=== PATIENT | female | born 1950 | race Caucasian/White ===

== ENCOUNTER 2016-11-07 05:50 | Inpatient (IN) | payer OTHER, BC ==
[2016-10-20 13:43] VITALS: BMI 37.1
[2016-11-07] MEDS ORDERED: BUPIVACAINE HCL/PF 0.5% (5MG/ML) 10 ML VIAL ONE ×2 (06:55→07:33)
[2016-11-07] MEDS ORDERED: SODIUM CHLORIDE 0.9% P/F 10 ML VIAL IJ ONE (06:55)
[2016-11-07] MEDS ORDERED: MIDAZOLAM HCL 2 MG/2 ML SINGLE DOSE VIAL ONE (06:56)
[2016-11-07] MEDS ORDERED: VANCOMYCIN 1,000 MG VIAL (RESTRICTED TO ID ONLY) ONE (07:13)
[2016-11-07] MEDS ORDERED: ceFAZolin SODIUM 1 GM VIAL ONE ×2 (07:13→08:39)
[2016-11-07] MEDS ORDERED: ROPIVICAINE 0.2%/MORPH PF/KETOROLAC - 51ML DISP.SYRINGE IA ONE ×2 (07:13→07:24)
[2016-11-07] MEDS ORDERED: TRANEXAMIC ACID 1000 MG/10 ML VIAL ONE ×2 (07:13→08:39)
[2016-11-07] MEDS ORDERED: oxyCODONE HCL 10 MG SUSTAINED ACTING TABLET ONE (07:21)
[2016-11-07] MEDS ORDERED: CELECOXIB 200 MG CAPSULE ONE (07:22)
[2016-11-07] MEDS ORDERED: GABAPENTIN 300 MG CAPSULE (FP) ONE (07:22)
[2016-11-07] MEDS ORDERED: CEFAZOLIN 2 GM in DEXTROSE 5%-WATER - 50 ML IVPB ONE (07:24)
[2016-11-07] MEDS ORDERED: TRANEXAMIC ACID 1000 MG/10 ML VIAL IVPUSH ONE (07:24)
[2016-11-07] MEDS: CELECOXIB 200 MG CAPSULE PO ONE (07:25)
[2016-11-07] MEDS: oxyCODONE HCL 10 MG SUSTAINED ACTING TABLET PO ONE (07:25)
[2016-11-07] MEDS: GABAPENTIN 300 MG CAPSULE (FP) PO ONE (07:25)
[2016-11-07] MEDS ORDERED: PROPOFOL 20 ML ONE ×4 (07:38→10:10)
--- NOTE | 2016-11-07 07:38 | HP ---
Admitting History and Physical - Admission Chief Complaint: Left knee osteoarthritis x years History of Present Illness: 66 year old female presents in regard to her left knee. Longstanding history of left knee osteoarthritis. Patient complains of pain, limited ROM, difficulty ambulating and difficulty with ADLs. She has failed conservative treatment including PO medication, activity modification, injections and exercise program. At this point, patient would like to proceed with a left total knee arthroplasty. History Source: Patient - Past Medical History Gastrointestinal: Yes: GI Bleed, Peptic Ulcer Disease ...: No - Past Surgical History Additional Past Surgical History: See written H&P - Smoking History Smoking history: Never smoked Have you smoked in the past 12 months: No - Alcohol/Substance Use Hx Alcohol Use: Yes (OCCASIONALLY) Home Medications - Allergies Allergies/Adverse Reactions: Allergies Allergy/AdvReac Type Severity Reaction Status Date / Time No Known Allergies Allergy Verified 10/20/16 13:43 - Home Medications Home Medications: Ambulatory Orders Tramadol HCl [Ultram -] 50 mg PO Q4H PRN #90 tablet MDD 6 01/27/16 Review of Systems - Review of Systems Musculoskeletal: reports: Crepitus (Left Knee), Decreased ROM (Left Knee), Joint Pain (Left Knee), Joint Swelling (Left Knee) Physical Examination Vital Signs: Vital Signs Temperature 98.0 F 11/07/16 06:09 Pulse Rate 59 L 11/07/16 06:09 Respiratory Rate 18 11/07/16 06:09 Blood Pressure 136/84 11/07/16 06:09 O2 Sat by Pulse Oximetry (%) Constitutional: Yes: Well Nourished, No Distress Eyes: Yes: Conjunctiva Clear HENT: Yes: Atraumatic, Normocephalic Neck: Yes: Supple Cardiovascular: Yes: Regular Rate and Rhythm Respiratory: Yes: Regular Gastrointestinal: Yes: Soft ...Rectal Exam: Yes: Deferred Musculoskeletal: Yes: Joint Stiffness (Left Knee), Joint Swelling (Left Knee) Assessment/Plan 66 year old female with longstanding history of left knee osteoarthritis. Patient admits to limitations in ADLs and ambulation. Patient has failed all conservative treatment. Proceed with a left total knee arthroplasty.
[2016-11-07] MEDS ORDERED: ONDANSETRON 4 MG/2 ML VIAL ONE (08:39)
[2016-11-07] MEDS ORDERED: DEXAMETHASONE SOD PHOSPHATE 4 MG/1 ML VIAL ONE (08:39)
[2016-11-07] MEDS ORDERED: hydrALAZINE HCL 20 MG/ML VIAL ONE (09:13)
[2016-11-07] MEDS ORDERED: LABETALOL HCL 5 MG/1 ML (100MG/20 ML VIAL) ONE (09:13)
[2016-11-07] MEDS ORDERED: ONDANSETRON 4 MG/2 ML VIAL IVPUSH PRN (10:36)
[2016-11-07] MEDS ORDERED: oxyCODONE HCL 5 MG TABLET PO PRN ×2 (10:37)
--- NOTE | 2016-11-07 11:30 | OP ---
Operative Note - Note: Operative Date: 11/07/16 Pre-Operative Diagnosis: left knee OA Operation: left TKA Post-Operative Diagnosis: Same as Pre-op Surgeon: Hamilton Chang Exerciser Horse: Jennifer Dominguez Anesthesia: Spinal Estimated Blood Loss (mls): 50
[2016-11-07] MEDS ORDERED: MAGNESIUM HYDROX 2400MG/30ML ORAL SUSPENSION 30 ML CUP PO PRN (11:33)
[2016-11-07] MEDS ORDERED: MAG HYDROX/AL HYDROX/SIMETH 30 ML UNIT-DOSE CUP PO PRN (11:33)
[2016-11-07] MEDS ORDERED: PANTOPRAZOLE 40 MG TABLET (FP) PO ONE (11:36)
[2016-11-07] MEDS ORDERED: LACTATED RINGERS SOLUTION 1,000 ML IV SCH (11:45)
[2016-11-07] MEDS: KETOROLAC TROMETHAMINE 30 MG/1 ML VIAL IVPUSH SCH ×2 (12:00→23:40)
[2016-11-07] MEDS: traMADol HCL 50 MG TABLET PO SCH ×2 (12:15→23:35)
[2016-11-07] MEDS: ACETAMINOPHEN 325 MG TABLET (FP) PO SCH (12:15)
[2016-11-07] MEDS: SENNOSIDES/DOCUSATE COMBO (SENNA PLUS) TABLET (UD) PO SCH (21:40)
[2016-11-07] MEDS: oxyCODONE HCL 10 MG SUSTAINED ACTING TABLET PO SCH (21:40)
[2016-11-07] MEDS: CELECOXIB 200 MG CAPSULE PO SCH (21:41)
[2016-11-07] MEDS: GABAPENTIN 300 MG CAPSULE (FP) PO SCH ×2 (21:41→21:42)
[2016-11-07] MEDS: ASCORBIC ACID 500 MG TABLET (FP) PO SCH (21:42)
[2016-11-08] MEDS: KETOROLAC TROMETHAMINE 30 MG/1 ML VIAL IVPUSH SCH ×2 (00:40→06:09)
[2016-11-08] MEDS: CEFAZOLIN 2 GM/D5W 50 ML IVPB SCH (01:15)
[2016-11-08] MEDS: ACETAMINOPHEN 325 MG TABLET (FP) PO SCH ×4 (01:17→17:07)
[2016-11-08] MEDS: ONDANSETRON 4 MG/2 ML VIAL IVPB PRN ×2 (06:07→12:09)
[2016-11-08] MEDS: traMADol HCL 50 MG TABLET PO SCH ×3 (06:08→18:45)
[2016-11-08 08:04] LABS: ANION GAP 6 (8-16); CALCIUM 8.6 mg/dl (8.4-10.2); CO2 29 mmol/L (22-28); CREATININE 0.8 mg/dl (0.6-1.3); GLUCOSE,RANDOM 116 mg/dl (74-106); MCH 29.2 pg (25.7-33.7); MCHC 34.1 g/dl (32.0-36.0); MEAN CELL VOLUME 85.7 fl (80-96); MEAN PLT VOLUME 9.3 fl (7.5-11.1); PLATELET COUNT 201 K/MM3 (134-434); RDW 12.5 % (11.6-15.6); WHITE BLOOD COUNT 10.2 K/mm3 (4.0-10.8)
[2016-11-08] MEDS: ASPIRIN 325 MG TABLET PO SCH (08:12)
--- NOTE | 2016-11-08 08:12 | SPEC ---
DATE OF OPERATION: 11/07/2016 PREOPERATIVE DIAGNOSIS: Left knee osteoarthritis. POSTOPERATIVE DIAGNOSIS: Left knee osteoarthritis. PROCEDURE: Left total knee replacement. ATTENDING: Demarco Clark MD ODD TICKET CLERK: CADEN Nogueira ANESTHESIA: Spinal plus sedation. ESTIMATED BLOOD LOSS: 50 mL. COMPLICATIONS: None. SPECIMENS: Resected bone was sent for pathology analysis. DISPOSITION: The patient was transferred to the PACU in stable condition. IMPLANTS USED: [employer] Tri[employer]lon size 4 femoral and tibial components, 35-mm patellar component, 11-mm posterior stabilized polyethylene component. INDICATIONS: This is a 66-year-old female who presented to the office complaining of left knee pain. She has a history of a previous total hip replacement and did well after that surgery. She was diagnosed with severe left knee osteoarthritis and initially was treated nonoperatively with injections, medications, and physical therapy. She continued to have severe left knee pain and ambulatory dysfunction, and therefore was indicated for a left total knee replacement. The risks, benefits, and alternatives to the surgery were explained to the patient in great detail, and she elected to proceed with the surgery. DESCRIPTION OF PROCEDURE: On the day of surgery, the patient was taken to the operating room and placed on the OR table. Spinal anesthesia was administered by the anesthesiologist. The patient was then positioned supine on the table and all bony prominences were padded. A nonsterile tourniquet was placed on the proximal thigh. The knee was then prepped and draped in the usual sterile fashion and intravenous antibiotics were given for infection prophylaxis. A surgical time-out was then performed with the team, and the patients identity, procedure, side, availability of implants, and the administration of antibiotics was confirmed. The leg was then elevated and exsanguinated, and the tourniquet was inflated. With the knee flexed, a midline incision was made and carried down through the subcutaneous fat to the underlying retinaculum. A medial parapatellar arthrotomy was performed. This was followed by a subperiosteal dissection of the tissue off the proximal, medial tibia. A portion of fat pad was removed from under the patellar tendon, and a small portion of fat was excised off the distal supracondylar femur. The knee was then flexed further and the anterior horn of the lateral meniscus was released from the midline. Next, the anterior and posterior cruciate ligaments were transected. Osteophytes were removed from both the femur and tibia. Grade 4 changes were noted diffusely throughout the knee. Hohmann retractors were then placed around the distal femur. The starting drill was used to enter the intramedullary canal. The starting point had been chosen by checking the radiographs and anatomy. Proper alignment and intramedullary placement was then confirmed by placing the long narrow rachna into the femur. Next, the distal femoral cutting guide was adjusted to 6 degrees of valgus and pinned to the femur. The bone resection was assessed using an olaf-wing. An approximately 10mm distal cut was made and the cut pieces measured. Once this was complete, the sizing guide was used to determine which size femoral component should be used. Next, the appropriately sized 4-in-1 cutting block was then placed at the correct amount of external rotation and the olaf wing was used to assure that there would be no notching of the anterior cortex of the femur. Once this was done, Hohmann retractors were used to protect the medial and lateral collateral ligaments, and all appropriate bone cuts were made. Attention was then turned to the tibia. Hohmann retractors were used to translate the tibia anteriorly and protect the collateral ligaments. The medial and lateral menisci were removed. The extramedullary tibial alignment guide was then placed and adjusted for rotation, varus/valgus, and slope. The height of the cutting block was adjusted to the level of the desired bone resection and then pinned in place. The proximal tibia was then cut with a saw and the bone was removed and measured. Once this was completed, trial components were placed and the knee was taken through a full range of motion. Soft tissue balance was assessed in both flexion and extension and found to be appropriate. The knee was stable throughout the full range of motion. The knee was then put into extension and the patella everted. The synovium around the patella was circumscribed with electrocautery. A caliper was used to measure the patellar thickness and a saw was then used to resect the patella at the chondro-osseous junction. The cut surface was then sized and drilled for the appropriate patellar button, with care taken to medialize it. A trial patella was then placed and the knee was again taken through a full range of motion. The knee was found to have both good balance and good patellar tracking. All of the components were removed except the tibial base plate. The appropriate instrumentation was used to drill and punch the proximal tibia for the keel of the final component. All bony surfaces were then cleaned with pulsatile lavage and dried. Bone cement was then prepared on the back table, and final components were cemented in place in the usual fashion. Extruded cement was removed. The polyethylene trial was placed, the knee was put into extension, and axial pressure was applied for compression while the cement hardened. The patellar button was similarly cemented into place. Once the cement had hardened, the knee was taken through a full range of motion to assess stability, balance, and patellar tracking. This was found to be optimal and the trial polyethylene was exchanged for the appropriately sized real implant. The wound was then thoroughly irrigated with normal saline. No. 1 Polysorb and 0 VLoc 180 barbed sutures were used to close the arthrotomy. No. 1 Polysorb and 2-0 Polysorb sutures were used in the subcutaneous tissues. The skin was closed using both 3-0 VLoc 90 suture in a running subcuticular fashion and SwiftSet skin adhesive. Once this was completed a sterile Aquacel dressing and compressive Drew-wrap was applied. The tourniquet was then deflated and the patient was awakened and taken to the PACU in stable condition. ADDENDUM: After final components were placed, a 3-minute dilute betadine lavage was performed according to the [facility] protocol. This was followed by copious irrigation with normal saline via pulsatile lavage. After this, wound closure was begun. DEMARCO CLARK M.D. [id number]
[2016-11-08] MEDS: MULTIVITAMINS (DAILY MVI) TABLET (FP) PO SCH (09:54)
[2016-11-08] MEDS: ASCORBIC ACID 500 MG TABLET (FP) PO SCH ×2 (09:55→21:53)
[2016-11-08] MEDS: PANTOPRAZOLE 40 MG TABLET (FP) PO SCH (09:55)
[2016-11-08] MEDS: CELECOXIB 200 MG CAPSULE PO SCH ×2 (09:55→21:52)
[2016-11-08] MEDS: GABAPENTIN 300 MG CAPSULE (FP) PO SCH ×4 (09:55→21:53)
[2016-11-08] MEDS: oxyCODONE HCL 10 MG SUSTAINED ACTING TABLET PO SCH ×2 (09:56→21:51)
[2016-11-08] MEDS: SENNOSIDES/DOCUSATE COMBO (SENNA PLUS) TABLET (UD) PO SCH ×2 (09:56→21:51)
--- NOTE | 2016-11-08 17:12 | PN ---
Progress Note (short form) - Note Progress Note: 66F POD1 s/p TKR under spinal anesthetic with adductor canal and selective tibial blocks for post operative pain control. Pt is doing well, states that she has no pain, reports no anesthetic complications. Sensory and motor function are intact in both lower extremities.
[2016-11-08] MEDS: LACTATED RINGERS SOLUTION 1,000 ML IV SCH (19:19)
--- NOTE | 2016-11-08 20:29 | PN ---
Progress Note (short form) - Note Progress Note: Pt seen and examined. Comfortable. Had several episodes of n/v this AM. AVSS Selected Entries 11/08/16 14:29 Temperature 97.5 F L Pulse Rate 56 L Respiratory 16 Rate Blood Pressure 121/58 O2 Sat by Pulse 96 Oximetry (%) Laboratory Tests 11/08/16 11/08/16 07:36 07:36 WBC 10.2 Hgb 12.0 Hct 35.1 Plt Count 201 Sodium 135 L Potassium 4.3 Chloride 100 Carbon Dioxide 29 H Anion Gap 6 L BUN 14 D Creatinine 0.8 Random Glucose 116 H Calcium 8.6 Gen: NAD LLE: c/d/i, NVID A/P 66yo female POD#1 s/p L TKA 1. PT/OOB - WBAT LLE 2. Plan for d/c home tomorrow.
[2016-11-09] MEDS: ACETAMINOPHEN 325 MG TABLET (FP) PO SCH ×4 (00:31→11:05)
[2016-11-09] MEDS: traMADol HCL 50 MG TABLET PO SCH ×4 (00:31→10:46)
[2016-11-09 05:24] VITALS: BP 118/48; PULSE 69; TEMP 97.9
[2016-11-09 08:25] LABS: ANION GAP 4 (8-16); CALCIUM 8.5 mg/dl (8.4-10.2); CO2 32 mmol/L (22-28); CREATININE 0.7 mg/dl (0.6-1.3); GLUCOSE,RANDOM 116 mg/dl (74-106)
[2016-11-09] MEDS: ASPIRIN 325 MG TABLET PO SCH (08:48)
[2016-11-09 09:01] LABS: MCH 29.6 pg (25.7-33.7); MCHC 34.5 g/dl (32.0-36.0); MEAN CELL VOLUME 85.8 fl (80-96); MEAN PLT VOLUME 9.6 fl (7.5-11.1); PLATELET COUNT 183 K/MM3 (134-434); RDW 12.8 % (11.6-15.6); WHITE BLOOD COUNT 8.6 K/mm3 (4.0-10.8)
[2016-11-09] MEDS: SENNOSIDES/DOCUSATE COMBO (SENNA PLUS) TABLET (UD) PO SCH (09:35)
[2016-11-09] MEDS: ASCORBIC ACID 500 MG TABLET (FP) PO SCH (09:35)
[2016-11-09] MEDS: MULTIVITAMINS (DAILY MVI) TABLET (FP) PO SCH (09:35)
[2016-11-09] MEDS: PANTOPRAZOLE 40 MG TABLET (FP) PO SCH (09:35)
[2016-11-09] MEDS: GABAPENTIN 300 MG CAPSULE (FP) PO SCH ×2 (09:36→09:37)
[2016-11-09] MEDS: oxyCODONE HCL 10 MG SUSTAINED ACTING TABLET PO SCH (09:36)
[2016-11-09] MEDS: CELECOXIB 200 MG CAPSULE PO SCH (09:41)
[2016-11-09] MEDS: KETOROLAC TROMETHAMINE 30 MG/1 ML VIAL IVPUSH SCH (10:41)
[2016-11-09] MEDS: CEFAZOLIN 2 GM/D5W 50 ML IVPB SCH (10:41)
[2016-11-09] MEDS: LACTATED RINGERS SOLUTION 1,000 ML IV SCH ×2 (10:45→10:47)
[2016-11-09] MEDS: oxyCODONE HCL 10 MG SUSTAINED ACTING TABLET PO ONE (10:45)
[2016-11-09] MEDS: GABAPENTIN 300 MG CAPSULE (FP) PO ONE (10:46)
[2016-11-09] MEDS: CELECOXIB 200 MG CAPSULE PO ONE (10:46)
--- NOTE | 2016-11-09 11:11 | PN ---
Progress Note (short form) - Note Progress Note: Pt seen and examined. Comfortable. AVSS Selected Entries 11/09/16 05:23 Temperature 97.9 F Pulse Rate 69 Respiratory 19 Rate Blood Pressure 118/48 O2 Sat by Pulse 98 Oximetry (%) Oxygen Delivery Room Air Method Laboratory Tests 11/09/16 11/09/16 07:35 07:35 WBC 8.6 Hgb 12.2 Hct 35.2 Plt Count 183 Sodium 136 Potassium 4.7 Chloride 100 Carbon Dioxide 32 H Anion Gap 4 L BUN 14 Creatinine 0.7 Random Glucose 116 H Calcium 8.5 Gen: NAD LLE: c/d/i, NVID A/P 66yo female POD#2 s/p L TKA 1. PT/OOB - WBAT LLE 2. d/c home today.
--- NOTE | 2016-11-09 11:12 | DS ---
Physical Examination Vital Signs: Vital Signs Temperature 97.9 F 11/09/16 05:23 Pulse Rate 69 11/09/16 05:23 Respiratory Rate 19 11/09/16 05:23 Blood Pressure 118/48 11/09/16 05:23 O2 Sat by Pulse Oximetry (%) 98 11/09/16 05:23 Labs: CBC, BMP 11/09/16 07:35 11/09/16 07:35 Discharge Summary Reason For Visit: LEFT KNEE OSTEOARTHRITIS Current Active Problems Osteoarthritis of left knee (Acute) Procedures: Principal: left TKA Hospital Course: Admitted for elective surgery. Procedure performed without complications. Pt received postoperative antibiotic prophylaxis and DVT ppx. Ambulated with physical therapy. Stable for discharge home with outpatient followup. Condition: Stable - Instructions Diet, Activity, Other Instructions: Dr. Chang - Knee Replacement Instructions Keep the Aquacel dressing on until removed by Dr. Chang in 10-14 days - it is antibacterial and waterproof and you can shower with it on. Call the office for a follow-up appointment with Dr. Chang in 10-14 days. Take one Aspirin 325mg daily for 6 weeks to prevent blood clots in your legs. Take one Pantoprazole 40mg daily for 6 weeks to protect against heartburn and ulcers. Make sure to take a stool softener, multivitamin, and extra vitamin C supplement daily. For pain: *Mild pain (1-3/10): Take 1 Tramadol tablet every 4 hours as needed. Moderate pain (4-6/10): Take 1 Tramadol tablet and 1 Percocet tablet every 4 hours as needed. Severe pain (7-10/10): Take 1 Tramadol tablet and 2 Percocet tablets every 4 hours as needed. Activity: You can put as much weight on the operative leg as you want. Right after you get home, there will be a physical therapist coming to your house to help you walk around and bend/straighten your knee. After your follow-up appointment, you will be sent for more intensive outpatient physical therapy which will include machines and equipment that the home therapist cannot bring to your house. Always use a walker or cane for balance and to prevent falls. Disposition: VNS/HOME HEALTH CARE - Home Medications Comprehensive Discharge Medication List: Ambulatory Orders Ascorbic Acid [Vitamin C -] 500 mg PO BID tablet 11/08/16 Aspirin [ASA -] 325 mg PO DAILY@0800 tablet 11/08/16 Multivitamins [Multivit ([facility] Formulary)] 1 tab PO DAILY tab 11/08/16 Oxycodone HCl/Acetaminophen [Percocet 5-325 mg Tablet] 1 - 2 tab PO Q4H PRN #60 tablet MDD 10 11/08/16 Pantoprazole Sodium [Protonix -] 40 mg PO DAILY #40 tab 11/08/16 Sennosides/Docusate Sodium [Pericolace -] 1 tablet PO BID tablet 11/08/16 Tramadol HCl [Ultram -] 50 mg PO Q4H PRN #90 tablet MDD 6 11/08/16
--- NOTE | 2016-11-10 16:26 | PATH ---
Surgical Pathology Report Patient Name: LARS BARKER Med. Rec. #: [id number] /Age/Gender: 1950 (Age: 66) / F Account: [id number] Location: [facility] MED-SURG Taken: 11/07/2016 Received: 11/07/2016 Reported: 11/10/2016 Physicians: Hamilton Chang M.D. Specimen(s) Received LEFT KNEE BONE Clinical History Left knee osteoarthritis Final Diagnosis BONE AND SOFT TISSUE, LEFT KNEE, REPLACEMENT: DEGENERATIVE JOINT DISEASE. Electronically Signed Levon Sullivan M.D. Gross Description Received in formalin labeled "left knee bones," is a 14.0 x 11.5 x 2.5 cm aggregate of multiple crocker, irregular portions of bone and soft tissue. The tibial plateau measures 7.7 x 5.6 x 1.5 cm. There are multiple areas of eburnation present measuring up to 3.8 cm in greatest dimension. The remaining articular surfaces are diffusely nodular and granular. The underlying trabecular bone is yellow and hard. [employer] sections are submitted in one cassette, following decalcification. 11/08/201611/08/2016
== END 2016-11-09 11:25 | disposition home health service (06) | DRG 470 ==
LOC: FM/S 05:50
PROVIDERS: ADMIT Student in an Organized Health Care Education/Training Program; ATTEND Student in an Organized Health Care Education/Training Program
PROC: 0SRD0J9 Replacement of Left Knee Joint with Synthetic Substitute, Cemented, Open Approach (ICD-10-PCS; principal; 2016-11-07 09:00)
DX: M17.12 Unilateral primary osteoarthritis, left knee (principal); E66.9 Obesity, unspecified; Z68.37 Body mass index [BMI] 37.0-37.9, adult; Z87.11 Personal history of peptic ulcer disease
CPT/HCPCS: 36415; 73560-TC-LT; 80048; 85027; 86803; 88305-TC; 88311-TC; 94010; 94760; 97116-GP; 97162-GP